=== PATIENT | female | born 1960 | race Hispanic/Latino ===

== ENCOUNTER 2017-08-11 06:21 | Day surgery (SDC) | payer BC ==
[2017-08-03 09:29] VITALS: BMI 29.7
[2017-08-11 07:15] LABS: BASO # 0.07 K/mm3 (0.0-2.0); BASO % 0.6 % (0.0-3.0); EOS # 0.6 (0.0-0.7); EOS % 5.1 % (1.5-5.0); GRAN # 6.09 (1.4-6.5); GRAN % 56.4 % (50.0-68.0); HEMATOCRIT 38.8 % (36.0-48.0); LYMPH # 3.2 (1.2-3.4); LYMPH % 29.2 % (22.0-35.0); MEAN CELL VOLUME 81.9 fl (80.0-105.0); MEAN CORPUSCULAR HEMOGLOBIN 28.1 pg (25.0-35.0); MEAN CORPUSCULAR HGB CONC 34.3 g/dl (31.0-37.0); MEAN PLATELET VOLUME 9.4 fl (7.0-11.0); MONO # 0.9 (0.1-0.6); MONO % 8.7 % (1.0-6.0); RED CELL DISTRIBUTION WIDTH 13.7 % (11.5-14.5); WHITE BLOOD COUNT 10.8 10^3/ul (4.5-11.0)
[2017-08-11 07:18] LABS: INR 0.99 (0.93-1.08)
[2017-08-11 07:30] LABS: BLOOD UREA NITROGEN 11 mg/dL (7-21); CALCIUM 9.2 mg/dL (8.4-10.5); CARBON DIOXIDE 29 mmol/L (21-33); CHLORIDE 104 mmol/L (98-107); CHOLESTEROL 147 mg/dL (130-200); GFR AFRICAN-AMERICAN > 60; GLUCOSE,RANDOM 159 mg/dL (70-110); SODIUM 143 mmol/L (132-148)
[2017-08-11] MEDS ORDERED: Lidocaine 2% Inj (20ml) ONE (07:30)
[2017-08-11] MEDS ORDERED: Midazolam 2 MG/2 ML VIAL ONE ×3 (07:31→08:16)
[2017-08-11] MEDS ORDERED: Iohexol 350mgl/ml 50 ML ONE (08:53)
[2017-08-11] MEDS ORDERED: Iodixanol 320 MG/ML 200 ML BOTTLE IV ONE (08:53)
[2017-08-11] MEDS ORDERED: Sodium Chloride 0.9% 1,000 ML IV SCH (09:15)
--- NOTE | 2017-08-11 13:40 | CARDCATH ---
PROCEDURE DATE: 08/11/2017 CARDIAC CATHETERIZATION AND PTCA HISTORY: The patient is a 57-year-old woman with previous PTCA and stent in the past as well as multiple cardiac risk factors, who presents with chest pain and an abnormal stress test. She suffers from diabetes mellitus, hypertension and hypercholesterolemia and is overweight. Because of her abnormal stress test and symptoms, cardiac catheterization was recommended. PROCEDURE: Left heart catheterization with coronary angiography and left ventriculogram followed by PTCA and stent of an LAD. The right femoral artery was cannulated with 6-Comoran sheath. There were no complications. The 6-Comoran sheath was exchanged for a 7-Comoran sheath during the intervention. The findings on catheterization revealed a left ventricle that contracted normally. Estimated ejection fraction of 60%. Her coronary anatomy revealed a right dominant circulation. The RCA revealed diffuse atherosclerosis with a patent stent in the midportion. The left main artery was unremarkable. The LAD revealed intimal irregularities with an 80% stenosis at the takeoff of the diagonal vessel which revealed an 80% in-stent restenosis The circumflex artery and obtuse marginal branches were free of significant disease. A 7-Comoran guiding catheter was placed in the ostium of the left main artery. An ATW wire was used to cross the lesion in the LAD. A second wire was placed into the diagonal vessel. A 2.5 balloon was utilized to predilate the in-stent restenosis of the diagonal vessel. A 2.5 balloon was utilized up to 12 to 14 atmospheres of pressure. A 2.0 followed by a 2.5, 12 mm balloon was utilized to dilate the 80% eccentric lesion of the LAD in the mid LAD which was 10 mm in length. A 3.5 x 12 mm drug-eluting stent was placed and deployed at 12 atmospheres of pressure. Repeat coronary angiography revealed an excellent result with resolution of the lesions, HELADIO III flow and no residual stenosis in both the LAD and diagonal vessels. Angio-Seal was used to close the femoral artery site. The patient tolerated the procedure well. CONCLUSION: In summary, the procedure was successful PTCA and stent of an 80% LAD stenosis and PTCA of the diagonal vessel. Cardiac catheterization revealed an in-stent restenosis of the diagonal vessel stent as well as a patent stent in the RCA with normal LV function. Given these findings, the patient will need to remain on aspirin indefinitely and Plavix for least a year and undergo a strict cardiac risk-reduction program. Geovani Peacock MD
--- NOTE | 2017-08-11 14:15 | CP.PCM.HP ---
History of Present Illness - History of Present Illness History of Present Illness: 57 yo female with PMH of CAD, with 2 previous stenting procedures, HLD, DM, HTN , Partial Right breast mastectomy on hormone therapy, presented with Chest pain and abnormal Stress test which was done at Dr. Kline office. Cardiac Cath was recommended by Dr. Peacock and the procedure was done today. 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 Denies alcohol or illicit drug use. Family Hx: father of [place] at 77, mother had multiple health problems, in her 60s Present on Admission - Present on Admission Any Indicators Present on Admission: No Review of Systems - Constitutional Constitutional: absent: Anorexia, Chills, Excessive Sweating, Fever, Headache - EENT Eyes: absent: Blurred Vision, Change in Vision Ears: absent: Decreased Hearing, Ear Pain, Tinnitus Nose/Mouth/Throat: absent: Nasal Congestion, Nasal Discharge, Sinus Pain, Sinus Pressure, Sore Throat - Cardiovascular Cardiovascular: absent: Chest Pain, Chest Pain with Activity, Dyspnea, Dyspnea on Exertion, Palpitations - Respiratory Respiratory: absent: Cough, Dyspnea, Dyspnea on Exertion, Chest Congestion - Gastrointestinal Gastrointestinal: absent: Abdominal Pain - Musculoskeletal Musculoskeletal: absent: Arthralgias, Numbness, Tingling - Integumentary Integumentary: absent: Rash - Neurological Neurological: absent: Abnormal Gait, Abnormal Hearing, Tingling, Weakness Past Patient History - Tetanus Immunizations Tetanus Immunization: Unknown - Past Social History Smoking Status: Current Some Days Smoker - CARDIAC Hx Pacemaker: No - PULMONARY Other/Comment: smoker - NEUROLOGICAL Hx Paralysis: No - ENDOCRINE/METABOLIC Hx Diabetes Mellitus Type 2: Yes - HEMATOLOGICAL/ONCOLOGICAL Hx Blood Transfusions: No Hx Blood Transfusion Reaction: No - MUSCULOSKELETAL/RHEUMATOLOGICAL Hx Musculoskeletal Disorders: No - PSYCHIATRIC Hx Emotional Abuse: No Hx Physical Abuse: No Hx Substance Use: No - SURGICAL HISTORY Hx Surgeries: Yes - ANESTHESIA Hx Anesthesia Reactions: No Hx Malignant Hyperthermia: No Meds Allergies/Adverse Reactions: Allergies Allergy/AdvReac Type Severity Reaction Status Date / Time No Known Allergies Allergy Verified 05/13/13 17:47 Physical Exam - Constitutional Appears: Non-toxic, No Acute Distress - Head Exam Head Exam: ATRAUMATIC, NORMAL INSPECTION, NORMOCEPHALIC - Eye Exam Eye Exam: EOMI, Normal appearance - ENT Exam ENT Exam: Mucous Membranes Moist, Normal Oropharynx - Neck Exam Neck exam: Positive for: Normal Inspection. Negative for: Lymphadenopathy - Respiratory Exam Respiratory Exam: Clear to Auscultation Bilateral, NORMAL BREATHING PATTERN - Cardiovascular Exam Cardiovascular Exam: REGULAR RHYTHM - GI/Abdominal Exam GI & Abdominal Exam: Normal Bowel Sounds. absent: Tenderness - Extremities Exam Extremities exam: Positive for: normal inspection, pedal pulses present Additional comments: pedal pulses 2+ bilaterally - Neurological Exam Neurological exam: Alert, Oriented x3 - Psychiatric Exam Psychiatric exam: Normal Mood Results - Vital Signs Recent Vital Signs: Last Vital Signs Temp 98.4 F 08/11/17 06:45 Pulse 67 08/11/17 10:05 Resp 18 08/11/17 06:45 BP 121/54 L 08/11/17 10:05 Pulse Ox 98 08/11/17 06:45 - Labs Result Diagrams: 08/11/17 06:45 08/11/17 06:45 Labs: Laboratory Results - last 24 hr 08/11/17 08/11/17 08/11/17 06:45 06:45 06:45 WBC 10.8 RBC 4.74 Hgb 13.3 Hct 38.8 MCV 81.9 MCH 28.1 MCHC 34.3 RDW 13.7 Plt Count 328 MPV 9.4 Gran % 56.4 Lymph % (Auto) 29.2 Clayton % (Auto) 8.7 H Eos % (Auto) 5.1 H Baso % (Auto) 0.6 Gran # 6.09 Lymph # 3.2 Clayton # 0.9 H Eos # 0.6 Baso # 0.07 PT 10.7 INR 0.99 APTT 28.0 Sodium 143 Potassium 4.0 Chloride 104 Carbon Dioxide 29 Anion Gap 14 BUN 11 Creatinine 0.6 Est GFR ( Amer) > 60 Est GFR (Non-Af Amer) > 60 Random Glucose 159 H Calcium 9.2 Triglycerides 211 H Cholesterol 147 LDL Cholesterol Direct 85 HDL Cholesterol 28 L Blood Type Blood Type Confirm Antibody Screen BBK History Checked 08/11/17 08/11/17 06:45 08:30 WBC RBC Hgb Hct MCV MCH MCHC RDW Plt Count MPV Gran % Lymph % (Auto) Clayton % (Auto) Eos % (Auto) Baso % (Auto) Gran # Lymph # Clayton # Eos # Baso # PT INR APTT Sodium Potassium Chloride Carbon Dioxide Anion Gap BUN Creatinine Est GFR ( Amer) Est GFR (Non-Af Amer) Random Glucose Calcium Triglycerides Cholesterol LDL Cholesterol Direct HDL Cholesterol Blood Type O POSITIVE Blood Type Confirm O POSITIVE Antibody Screen Negative BBK History Checked No verified bt Assessment & Plan - Assessment and Plan (Free Text) Assessment: 57 yo female with PMH of CAD, with 2 previous stenting procedures, HLD, CAD, DM , HTN, Partial Right breast mastectomy on hormone therapy status post cardiac cath and stenting. Plan: 1. 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 Peacock -LAD had 80% stenosis -EF 60% -on aspirin, metoprolol -started on plavix -NS @100 2. HTN -continue home meds 3. DM -hold oral hypoglcemics -ISS -Carb Consistent Diet 4. HLD -continue Atorvastatin 5. Prophylaxis -Pantoprazole -SCDs
[2017-08-11] MEDS: Insulin Lispro (humaLOG) LOW Coverage SC SCH ×2 (17:08→21:49)
[2017-08-12 01:51] VITALS: RESP 20
[2017-08-12 05:32] VITALS: PULSE 69
[2017-08-12] MEDS ORDERED: Pantoprazole 40 mg EC Tab PO SCH (06:00)
[2017-08-12 06:28] VITALS: TEMP 98.1; O2SAT 99
[2017-08-12 06:48] VITALS: BP 147/74
[2017-08-12 07:46] LABS: BLOOD UREA NITROGEN 12 mg/dL (7-21); CALCIUM 8.9 mg/dL (8.4-10.5); CARBON DIOXIDE 29 mmol/L (21-33); CHLORIDE 103 mmol/L (98-107); GFR AFRICAN-AMERICAN > 60; GLUCOSE,RANDOM 194 mg/dL (70-110); POTASSIUM 4.6 mmol/L (3.6-5.0); SODIUM 141 mmol/L (132-148)
[2017-08-12 07:50] LABS: BASO # 0.05 K/mm3 (0.0-2.0); BASO % 0.5 % (0.0-3.0); EOS # 0.5 (0.0-0.7); GRAN # 6.26 (1.4-6.5); GRAN % 58.8 % (50.0-68.0); HEMATOCRIT 37.8 % (36.0-48.0); LYMPH # 2.9 (1.2-3.4); LYMPH % 26.9 % (22.0-35.0); MEAN CELL VOLUME 83.1 fl (80.0-105.0); MEAN CORPUSCULAR HEMOGLOBIN 26.8 pg (25.0-35.0); MEAN CORPUSCULAR HGB CONC 32.3 g/dl (31.0-37.0); MEAN PLATELET VOLUME 9.3 fl (7.0-11.0); MONO # 0.9 (0.1-0.6); MONO % 8.8 % (1.0-6.0); RED CELL DISTRIBUTION WIDTH 13.9 % (11.5-14.5); WHITE BLOOD COUNT 10.6 10^3/ul (4.5-11.0)
[2017-08-12] MEDS: Insulin Lispro (humaLOG) LOW Coverage SC SCH (08:02)
--- NOTE | 2017-08-12 08:19 | CARD ---
APPROVED REPORT EKG Measurement Heart [id number] [id number] <Conclusion> Normal sinus rhythm Normal ECG
--- NOTE | 2017-08-12 13:51 | CP.PCM.DIS ---
Provider - Provider Attending physician: Dany Lynn MD Primary care physician: Dany Lynn MD Consults: Cardio: Ayush Time Spent in preparation of Discharge (in minutes): 45 Hospital Course - Lab Results Lab Results: Most Recent Lab Values WBC 10.6 10^3/ul (4.5-11.0) 08/12/17 06:00 RBC 4.55 10^6/uL (3.5-6.1) 08/12/17 06:00 Hgb 12.2 g/dL (12.0-16.0) 08/12/17 06:00 Hct 37.8 % (36.0-48.0) 08/12/17 06:00 MCV 83.1 fl (80.0-105.0) 08/12/17 06:00 MCH 26.8 pg (25.0-35.0) 08/12/17 06:00 MCHC 32.3 g/dl (31.0-37.0) 08/12/17 06:00 RDW 13.9 % (11.5-14.5) 08/12/17 06:00 Plt Count 302 10^3/uL (120.0-450.0) 08/12/17 06:00 MPV 9.3 fl (7.0-11.0) 08/12/17 06:00 Gran % 58.8 % (50.0-68.0) 08/12/17 06:00 Lymph % (Auto) 26.9 % (22.0-35.0) 08/12/17 06:00 Robertson % (Auto) 8.8 % (1.0-6.0) H 08/12/17 06:00 Eos % (Auto) 5.0 % (1.5-5.0) 08/12/17 06:00 Baso % (Auto) 0.5 % (0.0-3.0) 08/12/17 06:00 Gran # 6.26 (1.4-6.5) 08/12/17 06:00 Lymph # 2.9 (1.2-3.4) 08/12/17 06:00 Robertson # 0.9 (0.1-0.6) H 08/12/17 06:00 Eos # 0.5 (0.0-0.7) 08/12/17 06:00 Baso # 0.05 K/mm3 (0.0-2.0) 08/12/17 06:00 PT 10.7 Seconds (9.9-11.8) 08/11/17 06:45 INR 0.99 (0.93-1.08) 08/11/17 06:45 APTT 28.0 Seconds (23.7-30.8) 08/11/17 06:45 Sodium 141 mmol/L (132-148) 08/12/17 06:00 Potassium 4.6 mmol/L (3.6-5.0) 08/12/17 06:00 Chloride 103 mmol/L (98-107) 08/12/17 06:00 Carbon Dioxide 29 mmol/L (21-33) 08/12/17 06:00 Anion Gap 14 (10-20) 08/12/17 06:00 BUN 12 mg/dL (7-21) 08/12/17 06:00 Creatinine 0.7 mg/dL (0.5-1.4) 08/12/17 06:00 Est GFR ( Amer) > 60 08/12/17 06:00 Est GFR (Non-Af Amer) > 60 08/12/17 06:00 POC Glucose (mg/dL) 189 mg/dL (65-110) H 08/12/17 07:29 Random Glucose 194 mg/dL (70-110) H 08/12/17 06:00 Calcium 8.9 mg/dL (8.4-10.5) 08/12/17 06:00 Triglycerides 211 mg/dL (35-160) H 08/11/17 06:45 Cholesterol 147 mg/dL (130-200) 08/11/17 06:45 LDL Cholesterol Direct 85 mg/dL (0-129) 08/11/17 06:45 HDL Cholesterol 28 mg/dL (29-60) L 08/11/17 06:45 Blood Type O POSITIVE 08/11/17 06:45 Blood Type Confirm O POSITIVE 08/11/17 08:30 Antibody Screen Negative 08/11/17 06:45 BBK History Checked No verified bt 08/11/17 06:45 - Hospital Course Hospital Course: 57 yo female with PMH of CAD, with 2 previous stenting procedures, HLD, DM, HTN , Partial Right breast mastectomy on hormone therapy, presented with Chest pain and abnormal Stress test which was done at Dr. Kline office. Cardiac Cath was recommended by Dr. Peacock and the procedure was done on 08/12/17. Cardiac catherization PTCA was successful an dstent of an 80% stenosis and PTCA of the diagnoal vessel. Pt needs to remain on ASA and plavix. Today, pt was deemed stable per cardiology and was discharged. Discharge Exam - Head Exam Head Exam: ATRAUMATIC, NORMAL INSPECTION, NORMOCEPHALIC Discharge Plan - Follow Up Plan Condition: GOOD Disposition: HOME/ ROUTINE Instructions: Clopidogrel (By mouth), Coronary Artery Disease (DC), Chest Pain (DC), Left Heart Catheterization (DC), How to Stop Smoking (DC), Cigarette Smoking and Your Health (GEN), Angiography (DC), Coronary Intravascular Stent Placement (DC) Additional Instructions: Discharge home as per Dr. Peacock. Continue Plavix 75 mg by mouth daily. Continue same home medication prior to hospitalization. Follow up with Dr. Lynn in 1 week. Follow up with Dr. Peacock in 2 weeks. Return to nearest ER if symptoms worsen. See attached instructions. Referrals: Dany Lynn MD [Primary Care Provider] -
--- NOTE | 2017-08-12 15:53 | PN ---
DATE: 08/12/2017 SUBJECTIVE: The patient is asymptomatic post PTCA and stent. PHYSICAL EXAMINATION: VITAL SIGNS: Blood pressure 147/74 with heart rate in the 60s. NECK: Negative JVD. LUNGS: Without rales. HEART: Reveals S1, S2. EXTREMITIES: Without edema. Right groin site is stable. LABORATORY DATA: EKG shows no changes. IMPRESSION: 1. Stable post PTCA and stent of an left anterior descending with a drug-eluting stent. 2. Hypercholesterolemia. 3. Diabetes mellitus. 4. History of hypertension. PLAN: Given these findings, the patient is stable for discharge. I have discussed with the patient about the need to take Plavix for at least a year and undergo a strict cardiac risk reduction program. Geovani Peacock MD
--- NOTE | 2017-08-14 10:35 | CARD ---
APPROVED REPORT EKG Measurement Heart [id number] [id number] <Conclusion> Normal sinus rhythm Normal ECG No change
== END 2017-08-12 09:37 | disposition home or self-care (01) ==
LOC: CATH 06:21 → 2RSO 09:20 → CATH 08-12 09:37
PROVIDERS: ATTEND Internal Medicine
DX: I25.10 Atherosclerotic heart disease of native coronary artery without angina pectoris (principal); T82.855A Stenosis of coronary artery stent, initial encounter; I10 Essential (primary) hypertension; E11.8 Type 2 diabetes mellitus with unspecified complications; E78.5 Hyperlipidemia, unspecified; E78.00 Pure hypercholesterolemia, unspecified; E66.3 Overweight; Z68.29 Body mass index [BMI] 29.0-29.9, adult; Z79.4 Long term (current) use of insulin; Y83.8 Other surgical procedures as the cause of abnormal reaction of the patient, or of later complication, without mention of misadventure at the time of the procedure
CPT/HCPCS: 36415 ×2; 80048 ×2; 80061; 82948 ×2; 85025 ×2; 85610; 85730; 86850; 86900; 92920; 93005; 93458; 99152; 99153; C1725 ×2; C1769 ×2; C1874; C1887; C1894; C2629; C9600; J0360; J0583; J1644; J2250; J3010; J7030; J7040; J7120; Q9967

== ENCOUNTER 2018-08-11 22:08 | Inpatient (IN) | payer BC ==
[2018-08-11] MEDS ORDERED: Nitroglycerin 50mg in D5W 50 MG/250 ML BOTTLE IV ONE ×2 (22:19→22:44)
[2018-08-11] MEDS ORDERED: Nitroglycerin 50mg in D5W 50 MG/250 ML BOTTLE IV PRN (22:19)
[2018-08-11] MEDS ORDERED: Eptifibatide 20 mg/10mL Inj IVP ONE (22:20)
[2018-08-11] MEDS ORDERED: Morphine 4 mg/ml ISec IVP STA (22:23)
--- NOTE | 2018-08-11 22:23 | ED PDOC ---
Arrival/HPI - General Chief Complaint: Chest Pain Time Seen by Provider: 08/11/18 22:15 Historian: Patient - Critical Care Critical Care Minutes: Other (35 minutes) - History of Present Illness Narrative History of Present Illness (Text): 08/11/18 22:12 58 year old female, whose past medical history includes CAD s/p stents, hypertension, and diabetes, presents to the emergency department complaining of left-sided chest pain for the past hour. Patient describes the pain as a pressure sensation. 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 She reports she had a stress test done last Monday. Patient denies any fever, chills, shortness of breath, abdominal pain, nausea, vomiting, diarrhea, back pain, neck pain, dizziness, headache, or any other complaints. PMD: Dr. Lynn Supervisor Audit Clerks: Dr. Peacock Time/Duration: 1 hour Symptom Onset: Sudden Symptom Course: Unchanged Quality: Pressure Context: Home Past Medical History - Provider Review Nursing Documentation Reviewed: Yes - Tetanus Immunization Tetanus Immunization: Unknown - Cardiac Hx Hypertension: Yes - Pulmonary Other/Comment: smoker - Neurological Hx Paralysis: No - HEENT Hx HEENT Disorder: No - Renal Hx Renal Disorder: No - Endocrine/Metabolic Hx Diabetes Mellitus Type 2: Yes - Hematological/Oncological Hx Blood Transfusions: No Hx Blood Transfusion Reaction: No - Musculoskeletal/Rheumatological Hx Musculoskeletal Disorders: No - Psychiatric Hx Emotional Abuse: No Hx Physical Abuse: No Hx Substance Use: No - Surgical History Hx Cardiac Catheterization: Yes (stents x6) - Anesthesia Hx Anesthesia Reactions: No Hx Malignant Hyperthermia: No - Suicidal Assessment Feels Threatened In Home Enviroment: No Family/Social History - Physician Review Nursing Documentation Reviewed: Yes Family/Social History: No Known Family HX Smoking Status: Current Some Days Smoker Hx Alcohol Use: No Hx Substance Use: No Hx Substance Use Treatment: No Allergies/Home Meds Allergies/Adverse Reactions: Allergies No Known Allergies Allergy (Verified 05/13/13 17:47) Home Medications: Home Meds Medication Instructions Recorded Confirmed Metoprolol Succinate 50 mg PO BID 05/13/13 08/11/18 ALPRAZolam [Xanax] 0.25 mg PO DAILY PRN 03/18/16 08/11/18 Ergocalciferol (Vitamin D2) 50,000 unit PO TUE 07/31/17 08/11/18 [Vitamin D2] Insulin Degludec [Tresiba 60 unit SQ QPM 07/31/17 08/11/18 Flextouch U-100] Insulin Lispro [humALOG] 26 units SQ ACTID 07/31/17 08/11/18 Irbesartan [Avapro] 300 mg PO DAILY 07/31/17 08/11/18 Aspirin [Ecotrin] 81 mg PO DAILY 08/03/17 08/11/18 Clopidogrel [Plavix] 75 mg PO DAILY 08/03/17 08/11/18 Anastrozole [Arimidex] 1 mg PO DAILY 08/03/18 08/11/18 Pravastatin Sodium [Pravachol] 20 mg PO HS 08/11/18 08/11/18 Review of Systems - Physician Review All systems were reviewed & negative as marked: Yes - Review of Systems Constitutional: absent: Fevers, Other (Chills) Respiratory: absent: SOB Cardiovascular: Chest Pain Gastrointestinal: absent: Abdominal Pain, Diarrhea, Nausea Musculoskeletal: absent: Back Pain, Neck Pain Neurological: absent: Headache, Dizziness Physical Exam - Physical Exam Narrative Physical Exam (Text): 08/11/18 22:31 Gen: VS reviewed, alert, well developed, well nourished, nontoxic, mild to moderate distress. ENT: normal pharynx. Eye: EOMI, PERRL. Neck: no JVD, supple, no adenopathy. CV: regular rate, regular rhythm, no rubs, no murmur, no gallops, S1, S2, pulses equal and strong. Pulm: no distress, clear to auscultation, no wheeze, no rhonchi, breath sounds equal, no rales. Abd: soft, nontender, no guarding, no rebound, no rigidity, normal bowel sounds. Ext: no edema. Skin: good color, no rash, no cyanosis. Psych: responds appropriately to questions, normal affect. Neuro: oriented x 3, CN2-12 intact grossly, motor intact, sensation intact. Vital Signs Reviewed: Yes Temperature: Afebrile Blood Pressure: Hypertensive Pulse: Regular Respiratory Rate: Normal Medical Decision Making ED Course and Treatment: 08/11/18 22:12 Impression: 58 year old female presents complaining of left-sided chest pain that began one hour prior to arrival. Plan: -- EKG -- Labs -- CXR -- Brilinta, Heparin, Morphine, Nitroglycerin -- O2 Nasal Cannula -- Reassess and disposition Prior Visits: Notes and results from previous visits were reviewed. Progress Notes: 08/11/18 22:15 Code Heart called 08/11/18 22:[address] Lang interventionalist radiation oncologist. Request consult code management of STEMI and would like patient to get a dose of Heparin 5000 units and Brilinta. 08/11/18 22:[address] Rodriguez who is aware and agree with the plan. Will see patient for consultation/admission 08/11/18 22:37 patient with hx cad presents with acute left sided chest pressure, ekg consistent with acute st elevations, patient admitted to hospitalist service. - Critical Care Critical Care Minutes: Other (35 minutes) - EKG Interpretation EKG Interpretation (Text): 08/11/18 22:32 2213: sinus rhythm at 85 bpm, frequent pvc's, st elevations in leads I/AVL with reciprocal changes in lateral leads Interpreted by ED Physician: Yes Type: 12 lead EKG - Scribe Statement The provider has reviewed the documentation as recorded by the Scribe James Sotomayor Provider Scribe Attestation: All medical record entries made by the Scribe were at my direction and personally dictated by me. I have reviewed the chart and agree that the record accurately reflects my personal performance of the history, physical exam, medical decision making, and the department course for this patient. I have also personally directed, reviewed, and agree with the discharge instructions and disposition. Disposition/Present on Arrival - Present on Arrival Any Indicators Present on Arrival: No History of DVT/PE: No History of Uncontrolled Diabetes: No Urinary Catheter: No History of Decub. Ulcer: No History Surgical Site Infection Following: None - Disposition Have Diagnosis and Disposition been Completed?: Yes Diagnosis: Acute coronary syndrome Disposition: HOSPITALIZED Disposition Time: 10:15 Patient Plan: ICU Patient Problems: Current Active Problems Problem Status Onset Acute coronary syndrome Acute Condition: GUARDED
[2018-08-11] MEDS ORDERED: Morphine 4 mg/ml ISec IVP ONE (22:30)
[2018-08-11 22:32] LABS: BASO # 0.06 K/mm3 (0.0-2.0); BASO % 0.4 % (0.0-3.0); EOS # 0.4 (0.0-0.7); EOS % 2.4 % (1.5-5.0); GRAN # 7.39 (1.4-6.5); GRAN % 49.8 % (50.0-68.0); HEMOGLOBIN 12.5 g/dL (12.0-16.0); INR 1.01; LYMPH # 5.5 (1.2-3.4); LYMPH % 37.1 % (22.0-35.0); MEAN CELL VOLUME 80.9 fl (80.0-105.0); MEAN CORPUSCULAR HEMOGLOBIN 26.8 pg (25.0-35.0); MEAN CORPUSCULAR HGB CONC 33.1 g/dl (31.0-37.0); MEAN PLATELET VOLUME 9.2 fl (7.0-11.0); MONO # 1.5 (0.1-0.6); MONO % 10.3 % (1.0-6.0); PROTHROMBIN TIME 11.5 SECONDS (9.4-12.5); RBC 4.67 10^6/uL (3.5-6.1); RED CELL DISTRIBUTION WIDTH 13.7 % (11.5-14.5); WHITE BLOOD COUNT 14.8 10^3/ul (4.5-11.0)
[2018-08-11 22:35] LABS: ALB/GLOB RATIO 1.3 (1.1-1.8); ALBUMIN 4.6 g/dL (3.0-4.8); ALT/SGPT 22 U/L (7-56); AST/SGOT 27 U/L (14-36); BLOOD UREA NITROGEN 13 mg/dL (7-21); CALCIUM 9.7 mg/dL (8.4-10.5); GFR NON-AFRICAN AMERICAN > 60
[2018-08-11] MEDS ORDERED: Phenylephrine 10 mg/ml Inj ONE (22:40)
[2018-08-11] MEDS ORDERED: Midazolam 2 MG/2 ML VIAL ONE ×3 (22:42→23:31)
[2018-08-11] MEDS ORDERED: Iodixanol 320 MG/ML 200 ML BOTTLE IV ONE (22:44)
[2018-08-11] MEDS ORDERED: Iohexol 350mgl/ml 50 ML ONE (22:44)
[2018-08-11] MEDS ORDERED: Iodixanol 320 MG/ML 100 ML BOTTLE IV ONE (22:44)
[2018-08-11] MEDS ORDERED: Heparin 2,000 ML IV ONE (22:45)
[2018-08-11 22:59] LABS: TROPONIN I 0.02 ng/mL
[2018-08-11] MEDS ORDERED: Lidocaine 2% PF (10 ml) Amp ONE (23:08)
[2018-08-11] MEDS ORDERED: Sodium Chloride 0.9% 1,000 ML IV SCH (23:30)
--- NOTE | 2018-08-12 01:37 | CP.PCM.HP ---
<Rashawn Wilcox - Last Filed: 08/12/18 01:32> History of Present Illness - History of Present Illness History of Present Illness: Mike Jeri PGY2 - IM Resident - H&P for Hospitalist Team CC: STEMI HPI: 57 year old female with past medical history significant for CAD s/p stenting x 11, HLD, DM2, HTN, Breast CA s/p hormonal therapy who presented to [facility] ED with complaints of chest discomfort. Patient was evaluated and found to have ST segment elevations in lateral leads with recipriocal changes in II, III, and avF. Code HEART was called and patient was taken to [facility] with Dr. Gomez where he preformed PTCA to thrombosed previous stent in Diagnol 1. No stents were placed and EF was found to be 60%. Prior to arrival patient reports being at home painting overhead when she began to experience chest tightness, shortness of breath and numbness that was unrelenting. Patient indicates pain was as if someone was sitting on her chest. Rating painas 10/10 on admission, s/p cath pain rated as 3/10. Of note patient had recent stress test 2 weeks prior to admission for which she is unsure of results. Prior to that she had her most recent heart cath with stent placement in July 2017. Patient was transferred to ICU for post cath monitoring. Patient denies nausea, vomiting, fever, chills, abdominal discomfort, urinary symptoms, weakness, numbness. PMH: CAD s/p stenting x 11, HLD, DM2, HTN, Breast CA s/p hormonal therapy PSH: Parital right breast mastectomy, Right rotator cuff surgery, right partial mastectomy FMH: Father: @ 77 due to [place], Mother: @ 64 w/ HTN, CAD SOCHx: Tobacco: 30+pack year hx, ETOH: Denies, ID: Denies ALL: NKDA MEDS: MAR Reviewed PMD: Dr. Lynn Litharge Supervisor: Dr. Peacock Present on Admission - Present on Admission Any Indicators Present on Admission: No Review of Systems - Review of Systems All systems: reviewed and no additional remarkable complaints except (as mentioned in HPI) Past Patient History - Tetanus Immunizations Tetanus Immunization: Unknown - Past Social History Smoking Status: Current Some Days Smoker - CARDIAC Hx Hypertension: Yes - PULMONARY Other/Comment: smoker - NEUROLOGICAL Hx Paralysis: No - HEENT Hx HEENT Problems: No - RENAL Hx Chronic Kidney Disease: No - ENDOCRINE/METABOLIC Hx Diabetes Mellitus Type 2: Yes - HEMATOLOGICAL/ONCOLOGICAL Hx Blood Transfusions: No Hx Blood Transfusion Reaction: No - MUSCULOSKELETAL/RHEUMATOLOGICAL Hx Musculoskeletal Disorders: No - PSYCHIATRIC Hx Emotional Abuse: No Hx Physical Abuse: No Hx Substance Use: No - SURGICAL HISTORY Hx Cardiac Catheterization: Yes (stents x6) - ANESTHESIA Hx Anesthesia Reactions: No Hx Malignant Hyperthermia: No Meds Allergies/Adverse Reactions: Allergies Allergy/AdvReac Type Severity Reaction Status Date / Time No Known Allergies Allergy Verified 05/13/13 17:47 Physical Exam - Constitutional Appears: No Acute Distress - Head Exam Head Exam: ATRAUMATIC, NORMAL INSPECTION, NORMOCEPHALIC - Eye Exam Eye Exam: EOMI, PERRL - ENT Exam ENT Exam: Mucous Membranes Moist - Respiratory Exam Respiratory Exam: Clear to Auscultation Bilateral, NORMAL BREATHING PATTERN. absent: Rales, Rhonchi, Wheezes - Cardiovascular Exam Cardiovascular Exam: REGULAR RHYTHM, +S1, +S2 - GI/Abdominal Exam GI & Abdominal Exam: Normal Bowel Sounds, Soft. absent: Guarding, Hernia, Tenderness - Extremities Exam Extremities exam: Positive for: full ROM, pedal pulses present. Negative for: calf tenderness, pedal edema, tenderness - Neurological Exam Neurological exam: Alert, CN II-XII Intact, Oriented x3 Additional comments: motor and sensory grossly intact - Psychiatric Exam Psychiatric exam: Normal Affect, Normal Mood - Skin Skin Exam: Dry, Intact Results - Vital Signs Recent Vital Signs: Last Vital Signs Temp 98.4 F 08/12/18 00:00 Pulse 88 08/12/18 01:20 Resp 20 08/12/18 01:20 BP 160/82 H 08/12/18 01:18 Pulse Ox 99 08/12/18 01:20 - Labs Result Diagrams: 08/11/18 22:15 08/11/18 22:15 Labs: Laboratory Results - last 24 hr 08/11/18 08/11/18 08/11/18 22:15 22:15 22:15 WBC 14.8 H D RBC 4.67 Hgb 12.5 Hct 37.8 MCV 80.9 MCH 26.8 MCHC 33.1 RDW 13.7 Plt Count 367 MPV 9.2 Gran % 49.8 L Lymph % (Auto) 37.1 H Rice % (Auto) 10.3 H Eos % (Auto) 2.4 Baso % (Auto) 0.4 Gran # 7.39 H Lymph # (Auto) 5.5 H Rice # (Auto) 1.5 H Eos # (Auto) 0.4 Baso # (Auto) 0.06 PT 11.5 INR 1.01 Sodium 140 Potassium 3.3 L Chloride 101 Carbon Dioxide 28 Anion Gap 14 BUN 13 Creatinine 0.8 Est GFR ( Amer) > 60 Est GFR (Non-Af Amer) > 60 Random Glucose 150 H Calcium 9.7 Total Bilirubin 0.2 AST 27 ALT 22 Alkaline Phosphatase 119 Lactate Dehydrogenase 403 Total Creatine Kinase 78 Troponin I 0.02 Total Protein 8.1 Albumin 4.6 Globulin 3.5 Albumin/Globulin Ratio 1.3 Assessment & Plan - Assessment and Plan (Free Text) Assessment: 57 year old female with past medical history significant for CAD s/p stenting x 11, HLD, DM2, HTN, Breast CA s/p hormonal therapy who presented for chest discomfort. Code heart was initated and patient went to [facility] for emergent intervention. Patient is transferred to ICU s/p intervetion. Plan: STEMI - CODE HEART called upon admission to ED for ST elevation in lateral leads - Patient loaded with ASA, Heparin and taken to [facility] with brick yard hand Dr. Lundy - Patient was found to have stent thrombosis of diagonal 1 requiring PTCA - Previous cardiological work up done with Dr. Peacock, will consult Dr. Peacock - Patient to likely need further intervention in future per Dr. Lundy - PRU value noted to be 267 indicating low plavix function - Dr. Lundy requesting Brillinta 90mg in AM, asa 81mg - Continue to monitor vital signs Hx of HTN - BP trended and appreciated - Continue home medications Hx of DM2 - Holding oral hypoglycemics from home - ISS-low - ACCHS - Heart healthy diet, carb consistent Hx HLD - Lipitor 40mg QHS GI/DVT ppx - IV protonix - SCDs Patient seen, case and plan discussed with attending - Date & Time Date: 08/12/18 Time: 01:35 <Judith Rodriguez - Last Filed: 08/12/18 04:01> Results - Vital Signs Recent Vital Signs: Last Vital Signs Temp 98.4 F 08/12/18 00:00 Pulse 82 08/12/18 02:30 Resp 16 08/12/18 02:30 BP 112/58 L 08/12/18 02:30 Pulse Ox 99 08/12/18 01:20 - Labs Result Diagrams: 08/11/18 22:15 08/11/18 22:15 Labs: Laboratory Results - last 24 hr 08/11/18 08/11/18 08/11/18 22:15 22:15 22:15 WBC 14.8 H D RBC 4.67 Hgb 12.5 Hct 37.8 MCV 80.9 MCH 26.8 MCHC 33.1 RDW 13.7 Plt Count 367 MPV 9.2 Gran % 49.8 L Lymph % (Auto) 37.1 H Rice % (Auto) 10.3 H Eos % (Auto) 2.4 Baso % (Auto) 0.4 Gran # 7.39 H Lymph # (Auto) 5.5 H Rice # (Auto) 1.5 H Eos # (Auto) 0.4 Baso # (Auto) 0.06 PT 11.5 INR 1.01 Sodium 140 Potassium 3.3 L Chloride 101 Carbon Dioxide 28 Anion Gap 14 BUN 13 Creatinine 0.8 Est GFR ( Amer) > 60 Est GFR (Non-Af Amer) > 60 Random Glucose 150 H Calcium 9.7 Total Bilirubin 0.2 AST 27 ALT 22 Alkaline Phosphatase 119 Lactate Dehydrogenase 403 Total Creatine Kinase 78 Troponin I 0.02 Total Protein 8.1 Albumin 4.6 Globulin 3.5 Albumin/Globulin Ratio 1.3 Attending/Attestation - Attestation I have personally seen and examined this patient.: Yes I have fully participated in the care of the patient.: Yes I have reviewed all pertinent clinical information: Yes Notes (Text): 08/12/18 04:00 Agree with history, physical examination, assessment and plan.
[2018-08-12] MEDS ORDERED: Morphine 2 mg/ml ISec IVP STA (06:38)
[2018-08-12 08:13] VITALS: BMI 31.1
[2018-08-12 08:30] LABS: HEMOGLOBIN 10.5 g/dL (12.0-16.0); MEAN CELL VOLUME 80.1 fl (80.0-105.0); MEAN CORPUSCULAR HEMOGLOBIN 25.8 pg (25.0-35.0); MEAN CORPUSCULAR HGB CONC 32.2 g/dl (31.0-37.0); RBC 4.07 10^6/uL (3.5-6.1); RED CELL DISTRIBUTION WIDTH 13.6 % (11.5-14.5)
[2018-08-12 08:43] LABS: BLOOD UREA NITROGEN 8 mg/dL (7-21); CALCIUM 8.4 mg/dL (8.4-10.5); GFR NON-AFRICAN AMERICAN > 60
[2018-08-12 09:14] LABS: TROPONIN I 6.94 ng/mL
[2018-08-12] MEDS: Insulin Lispro (humaLOG) LOW Coverage SC SCH ×4 (09:49→22:25)
[2018-08-12] MEDS: Metoprolol Succinate 50 mg XL Tab PO SCH ×2 (10:04→17:23)
--- NOTE | 2018-08-12 10:17 | RAD ---
Date of service: 08/11/2018 HISTORY: Chest pain COMPARISON: 05/13/2013. FINDINGS: LUNGS: No active pulmonary disease. PLEURA: No significant pleural effusion identified, no pneumothorax apparent. CARDIOVASCULAR: No radiographic findings to suggest acute or significant cardiovascular disease. OSSEOUS STRUCTURES: No significant abnormalities. VISUALIZED UPPER ABDOMEN: Normal. OTHER FINDINGS: None. IMPRESSION: No active disease. No significant interval change compared to the prior examination(s).
--- NOTE | 2018-08-12 11:48 | PN ---
DATE: 08/12/2018 CABLE FORMER NOTE SUBJECTIVE: The patient is resting with O2 via nasal cannula. Continues to have nitroglycerin IV drip. Has no complaints of active chest pain at this time. No fever, chills, nausea or vomiting. No complaints of increased shortness of breath, cough or congestion. PHYSICAL EXAMINATION: VITAL SIGNS: Note that her temperature is 97.9, her pulse is 71, respirations of 17 and BP is 127/72. SKIN: Warm and dry. HEENT: Head atraumatic, normocephalic. Eyes reactive to light. Ears, nose and throat seemed to be within normal limits. NECK: Supple. No JVD. No thyroid enlargement. No lymph nodes. HEART: Has regular rate and rhythm. Normal S1, S2. LUNGS: Reveal good breath sounds bilaterally. ABDOMEN: Soft. Decreased bowel sounds. GENITALIA: Deferred. RECTAL: Deferred. MUSCULOSKELETAL: No joint deformities. EXTREMITIES: Reveal trace lower extremity edema. NEUROLOGICAL: She seemed to be grossly intact. DATA: As far as her laboratories are concerned, her white count is 13, hemoglobin is 10.5 and hematocrit is 32.6 with platelets of 274,000. Sodium is 140, potassium 3.3, chloride 101, CO2 of 28 with a BUN of 13, creatinine of 0.8. Blood glucose is 150. IMPRESSION: As far as my impression, this patient presented with myocardial infarction. Code heart was called. The patient has history of coronary artery disease with six stents placed in for prior cardiac problems. The patient has a history of hypertension and diabetes, breast carcinoma and anemia as well as hyperlipidemia. PLAN: As far as our plan, we will continue with O2 via nasal cannula, continue with Brilinta, Ecotrin, Lipitor, nitroglycerin IV, IV fluids, metoprolol, Tylenol p.r.n. We will also continue to follow closely and treat aggressively along with the other consultants and the primary care doctor. Lupillo Allen MD
[2018-08-12] MEDS ORDERED: Magnesium Sulfate 2 GM in Sodium Chloride 0.9% 100 ML IVPB ONE (12:36)
--- NOTE | 2018-08-13 00:15 | CON ---
DATE: 08/12/2018 CARDIOLOGY CONSULT REASON FOR CONSULTATION: Chest pain and acute SC. HISTORY OF PRESENT ILLNESS: The patient is a 58-year-old female, who has a history of coronary artery disease, status post coronary stenting in the past, most recent stent was about a day ago according to the patient. The patient has a history of hypertension, diabetes mellitus. She presented because of chest pain. She was at home when she experienced chest pain; however, she went took a shower and her son brought her to the emergency room. The patient was found to have lateral ST elevation. Code Heart was activated. The patient was taken to the cardiac woven label designer and underwent coronary intervention on a diagonal branch. The images and the report of the procedure are not available yet on the [facility] database. The patient is currently in ICU, clinically stable, chest pain free. No reported ventricular arrhythmia or hypertension. Femoral sheath was removed and no reported groin bleeding. MEDICATIONS: Brilinta 90 mg twice a day, aspirin 81 mg once a day, Lipitor 40 mg once a day, magnesium sulfate 2 g infusion, infusion at 20 mcg per minute, Toprol-XL 50 mg twice a day. REVIEW OF SYSTEMS: No nausea or vomiting. No groin bleeding. No hematemesis or melena. PHYSICAL EXAMINATION: GENERAL: The patient is a middle-aged female, who does not appear to be in acute distress. VITAL SIGNS: Blood pressure 139/66, heart rate 78, temperature 98.2, respirations 23. HEENT: Normocephalic. NECK: No JVD. CHEST: Clear. HEART: S1 and S2 regular. ABDOMEN: Soft. EXTREMITIES: No hematoma and no pedal edema. LABORATORY DATA: Today's hemoglobin and hematocrit 10.5 and 32.6, white count 13, platelet count 274,000. SMA-7: Sodium 136, potassium 3.8, chloride 103, CO2 of 25, glucose 209, BUN 8, creatinine 0.5. Troponin first one was 0.02, second one was 6.94. PT and INR are within normal limit. Admitting EKG revealed sinus rhythm with [address] elevation. Today's EKG at around 11:00 a.m. revealed sinus rhythm with resolution of the previously noted lateral ST-segment elevation. The most recent coronary intervention was on 08/11/2017, exactly 1 year ago where the patient underwent PTCA and stent to 80% stenosis LAD and PTCA to a diagonal branch. ASSESSMENT: 1. Status post ST-elevation myocardial infarction with successful percutaneous coronary intervention to the diagonal branch. 2. Previous history of coronary artery disease with left anterior descending stenting of an 80% stenosis. 3. Hypertension and diabetes mellitus. 4. Hypomagnesemia. RECOMMENDATIONS: Continue Brilinta 90 mg twice a day, aspirin 81 mg once a day, Lipitor at 40 mg once a day. Continue current intravenous magnesium sulfate replacement. Continue Toprol at 50 mg twice a day. Venancio Elmore MD
[2018-08-13 07:15] VITALS: O2SAT 99
[2018-08-13 07:16] LABS: BASO # 0.04 K/mm3 (0.0-2.0); BASO % 0.3 % (0.0-3.0); EOS # 0.2 (0.0-0.7); EOS % 1.9 % (1.5-5.0); GRAN # 7.21 (1.4-6.5); GRAN % 62.2 % (50.0-68.0); HEMOGLOBIN 11.9 g/dL (12.0-16.0); LYMPH # 2.9 (1.2-3.4); LYMPH % 25.2 % (22.0-35.0); MEAN CELL VOLUME 80.3 fl (80.0-105.0); MEAN CORPUSCULAR HGB CONC 32.4 g/dl (31.0-37.0); MEAN PLATELET VOLUME 9.2 fl (7.0-11.0); MONO # 1.2 (0.1-0.6); MONO % 10.4 % (1.0-6.0); RBC 4.57 10^6/uL (3.5-6.1); RED CELL DISTRIBUTION WIDTH 13.8 % (11.5-14.5); WHITE BLOOD COUNT 11.6 10^3/ul (4.5-11.0)
[2018-08-13 07:41] LABS: ALB/GLOB RATIO 1.2 (1.1-1.8); ALBUMIN 4.1 g/dL (3.0-4.8); ALT/SGPT 20 U/L (7-56); AST/SGOT 44 U/L (14-36); BLOOD UREA NITROGEN 7 mg/dL (7-21); CALCIUM 9.3 mg/dL (8.4-10.5); GFR NON-AFRICAN AMERICAN > 60
[2018-08-13] MEDS: Insulin Lispro (humaLOG) LOW Coverage SC SCH (07:43)
[2018-08-13] MEDS: Metoprolol Succinate 50 mg XL Tab PO SCH (09:23)
--- NOTE | 2018-08-13 09:23 | CARD ---
APPROVED REPORT Date of service: 08/12/2018 EKG Measurement Heart [id number] <Conclusion> Normal sinus rhythm RVCD STTW changes c/w ischemia. Less ST depressions c/w ECG 08/11/28
--- NOTE | 2018-08-13 09:25 | CARD ---
APPROVED REPORT Date of service: 08/12/2018 EKG Measurement Heart [id number] <Conclusion> Normal sinus rhythm Septal infarct, age undetermined Improved repolarizaion c/w earlier ECG
[2018-08-13 09:27] VITALS: BP 133/75
--- NOTE | 2018-08-13 09:46 | CP.CCUPN ---
<Robb Lo - Last Filed: 08/13/18 12:13> CCU Subjective - Physician Review Subjective (Free Text): Robb Lo, PGY-1, CCU Progress Note for Dr. Faria Patient seen and examined at chairside. Patient had no overnight events. Patient reports chronic cough for 3 weeks due to a cold but no shortness of breath. Patient denies, chest pain, heart palpitations, shortness of breath, nausea, vomiting, left arm pain, jaw pain, diaphoresis, headache, dizziness, fever, sore throat, constipation, diarrhea, dysuria, hematuria, numbness/tingling, weakness. Critical Care Time Spent (in minutes): 60 CCU Objective - Vital Signs / Intake & Output Vital Signs (Last 4 hours): Vital Signs Pulse Resp BP Pulse Ox 08/13/18 09:23 71 133/75 08/13/18 07:15 72 08/13/18 07:10 77 11 L 99 08/13/18 07:00 70 14 98 08/13/18 06:50 82 35 H 99 08/13/18 06:40 73 29 H 98 08/13/18 06:30 65 21 97 08/13/18 06:20 68 15 97 08/13/18 06:10 69 22 95 08/13/18 06:00 66 20 142/78 96 08/13/18 05:50 70 15 95 Intake and Output (Last 8hrs): Intake & Output 08/12/18 08/13/18 08/13/18 22:59 06:59 14:59 Intake Total 577 310 Output Total 1100 1600 Balance -523 -1290 Intake: IV 237 30 IVF 0 IVPB 100 0 Left Antecubital 0 Nitro Drip 72 18 Oral 340 280 Output: Urine 1100 1600 Urine, Voided 1100 1600 Other: # Bowel Movements 0 - Physical Exam Head: Positive for: Atraumatic, Normocephalic Pupils: Positive for: PERRL Extroacular Muscles: Positive for: EOMI Conjunctiva: Positive for: Normal Mouth: Positive for: Moist Mucous Membranes Pharnyx: Positive for: Normal Nose (External): Positive for: Atraumatic. Negative for: Abrasion, Contusion, Laceration Nose (Internal): Positive for: Normal Inspection, Moist Neck: Positive for: Normal Range of Motion Respiratory/Chest: Positive for: Clear to Auscultation, Good Air Exchange. Negative for: Respiratory Distress, Accessory Muscle Use Cardiovascular: Positive for: Regular Rate and Rhythm, Normal S1, S2, Peripheal Pulses Present. Negative for: Murmurs, Irregular Rhythm Abdomen: Negative for: Tenderness, Distention, Normal Bowel Sounds Upper Extremity: Positive for: Normal Inspection, Normal ROM, NORMAL PULSES, Capillary Refill < 2s. Negative for: Cyanosis, Edema Lower Extremity: Positive for: Normal Inspection, Normal ROM, Capillary Refill < 2 s. Negative for: Edema, CALF TENDERNESS, NORMAL PULSES Neurological: Positive for: GCS=15, CN II-XII Intact, Speech Normal, Motor Func Grossly Intact Skin: Positive for: Warm, Dry, Normal Color Psychiatric: Positive for: Alert, Oriented x 3, Normal Insight, Normal Concentration - Medications Active Medications: Active Medications Generic Name Dose Route Start Last Admin Trade Name Freq PRN Reason Stop Dose Admin Acetaminophen 650 mg 08/12/18 06:06 08/12/18 13:15 Tylenol 325mg Tab PO 650 mg Q6H PRN Administration Pain, moderate (4-7) Acetaminophen 650 mg 08/12/18 06:13 Tylenol 325mg Tab PO Q6H PRN Headache Aspirin 81 mg 08/12/18 10:00 08/13/18 09:22 Ecotrin PO 81 mg DAILY DUKE Administration Atorvastatin Calcium 40 mg 08/12/18 17:00 08/12/18 17:24 Lipitor PO 40 mg DIN DUKE Administration Insulin Human Lispro 0 units 08/12/18 07:30 08/13/18 07:43 Humalog Low SC 1 units ACHS DUKE Administration Protocol Metoprolol Succinate 50 mg 08/12/18 10:00 08/13/18 09:23 Toprol Xl PO 50 mg BID DUKE Administration Pantoprazole Sodium 40 mg 08/13/18 10:00 Protonix Ec Tab PO DAILY DUKE Prasugrel 10 mg 08/13/18 10:00 08/13/18 09:23 Effient PO 10 mg DAILY DUKE Administration - Patient Studies Lab Studies: Lab Studies 08/13/18 08/13/18 08/12/18 Range/Units 06:18 06:18 22:01 WBC 11.6 H (4.5-11.0) 10^3/ul RBC 4.57 (3.5-6.1) 10^6/uL Hgb 11.9 L (12.0-16.0) g/dL Hct 36.7 (36.0-48.0) % MCV 80.3 (80.0-105.0) fl MCH 26.0 (25.0-35.0) pg MCHC 32.4 (31.0-37.0) g/dl RDW 13.8 (11.5-14.5) % Plt Count 307 (120.0-450.0) 10^3/uL MPV 9.2 (7.0-11.0) fl Gran % 62.2 (50.0-68.0) % Lymph % (Auto) 25.2 (22.0-35.0) % Sutton % (Auto) 10.4 H (1.0-6.0) % Eos % (Auto) 1.9 (1.5-5.0) % Baso % (Auto) 0.3 (0.0-3.0) % Gran # 7.21 H (1.4-6.5) Lymph # (Auto) 2.9 (1.2-3.4) Sutton # (Auto) 1.2 H (0.1-0.6) Eos # (Auto) 0.2 (0.0-0.7) Baso # (Auto) 0.04 (0.0-2.0) K/mm3 Sodium 139 (132-148) mmol/L Potassium 4.2 (3.6-5.0) mmol/L Chloride 106 (98-107) mmol/L Carbon Dioxide 25 (21-33) mmol/L Anion Gap 12 (10-20) BUN 7 (7-21) mg/dL Creatinine 0.5 L (0.7-1.2) mg/dl Est GFR ( Amer) > 60 Est GFR (Non-Af Amer) > 60 POC Glucose (mg/dL) 178 H (65-110) mg/dL Random Glucose 166 H (70-110) mg/dL Calcium 9.3 (8.4-10.5) mg/dL Phosphorus 4.0 (2.5-4.5) mg/dL Magnesium 2.1 (1.7-2.2) mg/dL Total Bilirubin 0.5 (0.2-1.3) mg/dL AST 44 H D (14-36) U/L ALT 20 (7-56) U/L Alkaline Phosphatase 92 (38-126) U/L Total Protein 7.6 (5.8-8.3) g/dL Albumin 4.1 (3.0-4.8) g/dL Globulin 3.5 gm/dL Albumin/Globulin Ratio 1.2 (1.1-1.8) 08/12/18 08/12/18 Range/Units 16:06 11:52 WBC (4.5-11.0) 10^3/ul RBC (3.5-6.1) 10^6/uL Hgb (12.0-16.0) g/dL Hct (36.0-48.0) % MCV (80.0-105.0) fl MCH (25.0-35.0) pg MCHC (31.0-37.0) g/dl RDW (11.5-14.5) % Plt Count (120.0-450.0) 10^3/uL MPV (7.0-11.0) fl Gran % (50.0-68.0) % Lymph % (Auto) (22.0-35.0) % Sutton % (Auto) (1.0-6.0) % Eos % (Auto) (1.5-5.0) % Baso % (Auto) (0.0-3.0) % Gran # (1.4-6.5) Lymph # (Auto) (1.2-3.4) Sutton # (Auto) (0.1-0.6) Eos # (Auto) (0.0-0.7) Baso # (Auto) (0.0-2.0) K/mm3 Sodium (132-148) mmol/L Potassium (3.6-5.0) mmol/L Chloride (98-107) mmol/L Carbon Dioxide (21-33) mmol/L Anion Gap (10-20) BUN (7-21) mg/dL Creatinine (0.7-1.2) mg/dl Est GFR ( Amer) Est GFR (Non-Af Amer) POC Glucose (mg/dL) 236 H 219 H (65-110) mg/dL Random Glucose (70-110) mg/dL Calcium (8.4-10.5) mg/dL Phosphorus (2.5-4.5) mg/dL Magnesium (1.7-2.2) mg/dL Total Bilirubin (0.2-1.3) mg/dL AST (14-36) U/L ALT (7-56) U/L Alkaline Phosphatase (38-126) U/L Total Protein (5.8-8.3) g/dL Albumin (3.0-4.8) g/dL Globulin gm/dL Albumin/Globulin Ratio (1.1-1.8) Laboratory Results - last 24 hr 08/12/18 08/12/18 08/12/18 11:52 16:06 22:01 WBC RBC Hgb Hct MCV MCH MCHC RDW Plt Count MPV Gran % Lymph % (Auto) Sutton % (Auto) Eos % (Auto) Baso % (Auto) Gran # Lymph # (Auto) Sutton # (Auto) Eos # (Auto) Baso # (Auto) Sodium Potassium Chloride Carbon Dioxide Anion Gap BUN Creatinine Est GFR ( Amer) Est GFR (Non-Af Amer) POC Glucose (mg/dL) 219 H 236 H 178 H Random Glucose Calcium Phosphorus Magnesium Total Bilirubin AST ALT Alkaline Phosphatase Total Protein Albumin Globulin Albumin/Globulin Ratio 08/13/18 08/13/18 06:18 06:18 WBC 11.6 H RBC 4.57 Hgb 11.9 L Hct 36.7 MCV 80.3 MCH 26.0 MCHC 32.4 RDW 13.8 Plt Count 307 MPV 9.2 Gran % 62.2 Lymph % (Auto) 25.2 Sutton % (Auto) 10.4 H Eos % (Auto) 1.9 Baso % (Auto) 0.3 Gran # 7.21 H Lymph # (Auto) 2.9 Sutton # (Auto) 1.2 H Eos # (Auto) 0.2 Baso # (Auto) 0.04 Sodium 139 Potassium 4.2 Chloride 106 Carbon Dioxide 25 Anion Gap 12 BUN 7 Creatinine 0.5 L Est GFR ( Amer) > 60 Est GFR (Non-Af Amer) > 60 POC Glucose (mg/dL) Random Glucose 166 H Calcium 9.3 Phosphorus 4.0 Magnesium 2.1 Total Bilirubin 0.5 AST 44 H D ALT 20 Alkaline Phosphatase 92 Total Protein 7.6 Albumin 4.1 Globulin 3.5 Albumin/Globulin Ratio 1.2 Fingerstick Blood Sugar Results: 173 Review of Systems - Constitutional Constitutional: absent: Fever, Chills, Sweats - EENT Eyes: absent: Blurred Vision Ears: absent: Decreased Hearing Nose/Mouth/Throat: absent: Sore Throat - Cardiovascular Cardiovascular: absent: Chest Pain, Chest Pain at Rest, Diaphoresis, Dyspnea, Edema, Irregular Heart Rhythm, Pain Radiating to Arm/Neck/Jaw, Lightheadedness, Orthopnea, Palpitations, Paroxysmal Nocturnal Dyspnea, Pedal Edema - Respiratory Respiratory: Cough. absent: Dyspnea, Hemoptysis, Wheezing - Gastrointestinal Gastrointestinal: absent: Abdominal Pain, Constipation, Diarrhea, Nausea, Vomiting - Genitourinary Genitourinary: absent: Dysuria, Hematuria, Pyuria - Musculoskeletal Musculoskeletal: absent: Abnormal Gait, Arthralgias, Myalgias - Neurological Neurological: absent: Numbness, Tingling, Tremor, Weakness - Psychiatric Psychiatric: absent: Anxiety, Depression Critical Care Progress Note - Ventilator Checklist Head of Bed 30 Degrees: No PUD Prophalyxis: Yes DVT Prophylaxis: Yes - Extremities/Vascular Does the Patient have a Central Venous Catheter?: No Does the Patient need a Central Venous Catheter?: No Does the Patient have a Pimentel Catheter?: No Does the Patient need a Pimentel Catheter?: No - Prophylaxis GI Prophylaxis GI: PPI - Nutrition Nutrition: Nutrition Category Date Time Status Diabetic [Consistent Carbohydrate] [DIET] Diets 08/13/18 Breakfast Ordered Assessment/Plan - Assessment and Plan (Free Text) Assessment: 58 year old female with past medical history of CAD status post stent placement x6, hyperlipidemia, diabetes type II, hypertension, breast cancer status post ho rmonal therapy presents with chest pressure with sensation of person sitting on her chest, numbness, and shortness of breath. Plan: Neuro: -AAOx3, no FND, moving extremities past midline. -Monitor neuro status. -Reorient patient as necessary. Cardio: -RRR, normotensive, no signs of HD compromise -Patient -Maintain MAP>65. -EKG: ST elevation in I (0.5 mm), aVL (1 mm) seen on EKG at 6:00 on 08/12 unchanged from EKG at 11:00 PM on 08/11 -Patient had cardiac catherization procedure performed by Dr. Aparicio which showed stenosed previous stent in Diagonal 1. No stents were placed. Patient for further evaluation outpatient as per Dr. Peacock. -Last echocardiogram: EF: 60% -Patient will be started on effient 10 mg daily. -Continue toprol, aspirin, and lipitor. -Monitor for S/S, HD compromise. Pulm: -No signs of respiratory distress. CTA B/L -Patient is stating well on room air. -Maintain O2 saturation>95%. -O2 NC PRN -CXR: no active disease GI: -Diabetic diet with heart healthy diet -Protonix 40 mg daily. /Nephro: -BUN/Cr stable -Good urine output -Continue monitoring. -No current electrolyte abnormalities. Replete electrolytes as needed. -Maintain euvolemia. Endocrinology: -Random glucose: 166 -Low dose SSI. -Maintain euglycemia. Heme/Onc: -H/H stable at 11.9/36.7 -No signs of HD compromise. -Continue monitoring H/H ID: -Afebrile, mild leukocytosis at 11.6 down from 13 yesterday -Leukocytosis likely stress induced. -Monitor for signs and symptoms of infection. DVT prophylaxis: SCD GI prophylaxis: protonix 40 mg daily Patient plan discussed with Dr. Faria. - Date & Time Date: 08/13/18 Time: 09:54 <Ericka Faria - Last Filed: 08/13/18 18:03> CCU Objective - Vital Signs / Intake & Output Intake and Output (Last 8hrs): Intake & Output 08/13/18 08/13/18 08/13/18 06:59 14:59 22:59 Intake Total 310 460 Output Total 1600 1100 Balance -1290 -640 Intake: IV 30 IVF 0 IVPB 0 Left Antecubital 0 Nitro Drip 18 Oral 280 460 Output: Urine 1600 1100 Urine, Voided 1600 1100 Other: # Bowel Movements 0 - Patient Studies Lab Studies: Lab Studies 08/13/18 08/13/18 08/13/18 Range/Units 07:20 06:18 06:18 WBC 11.6 H (4.5-11.0) 10^3/ul RBC 4.57 (3.5-6.1) 10^6/uL Hgb 11.9 L (12.0-16.0) g/dL Hct 36.7 (36.0-48.0) % MCV 80.3 (80.0-105.0) fl MCH 26.0 (25.0-35.0) pg MCHC 32.4 (31.0-37.0) g/dl RDW 13.8 (11.5-14.5) % Plt Count 307 (120.0-450.0) 10^3/uL MPV 9.2 (7.0-11.0) fl Gran % 62.2 (50.0-68.0) % Lymph % (Auto) 25.2 (22.0-35.0) % Sutton % (Auto) 10.4 H (1.0-6.0) % Eos % (Auto) 1.9 (1.5-5.0) % Baso % (Auto) 0.3 (0.0-3.0) % Gran # 7.21 H (1.4-6.5) Lymph # (Auto) 2.9 (1.2-3.4) Sutton # (Auto) 1.2 H (0.1-0.6) Eos # (Auto) 0.2 (0.0-0.7) Baso # (Auto) 0.04 (0.0-2.0) K/mm3 Sodium 139 (132-148) mmol/L Potassium 4.2 (3.6-5.0) mmol/L Chloride 106 (98-107) mmol/L Carbon Dioxide 25 (21-33) mmol/L Anion Gap 12 (10-20) BUN 7 (7-21) mg/dL Creatinine 0.5 L (0.7-1.2) mg/dl Est GFR ( Amer) > 60 Est GFR (Non-Af Amer) > 60 POC Glucose (mg/dL) 173 H (65-110) mg/dL Random Glucose 166 H (70-110) mg/dL Calcium 9.3 (8.4-10.5) mg/dL Phosphorus 4.0 (2.5-4.5) mg/dL Magnesium 2.1 (1.7-2.2) mg/dL Total Bilirubin 0.5 (0.2-1.3) mg/dL AST 44 H D (14-36) U/L ALT 20 (7-56) U/L Alkaline Phosphatase 92 (38-126) U/L Total Protein 7.6 (5.8-8.3) g/dL Albumin 4.1 (3.0-4.8) g/dL Globulin 3.5 gm/dL Albumin/Globulin Ratio 1.2 (1.1-1.8) 08/12/18 Range/Units 22:01 WBC (4.5-11.0) 10^3/ul RBC (3.5-6.1) 10^6/uL Hgb (12.0-16.0) g/dL Hct (36.0-48.0) % MCV (80.0-105.0) fl MCH (25.0-35.0) pg MCHC (31.0-37.0) g/dl RDW (11.5-14.5) % Plt Count (120.0-450.0) 10^3/uL MPV (7.0-11.0) fl Gran % (50.0-68.0) % Lymph % (Auto) (22.0-35.0) % Sutton % (Auto) (1.0-6.0) % Eos % (Auto) (1.5-5.0) % Baso % (Auto) (0.0-3.0) % Gran # (1.4-6.5) Lymph # (Auto) (1.2-3.4) Sutton # (Auto) (0.1-0.6) Eos # (Auto) (0.0-0.7) Baso # (Auto) (0.0-2.0) K/mm3 Sodium (132-148) mmol/L Potassium (3.6-5.0) mmol/L Chloride (98-107) mmol/L Carbon Dioxide (21-33) mmol/L Anion Gap (10-20) BUN (7-21) mg/dL Creatinine (0.7-1.2) mg/dl Est GFR ( Amer) Est GFR (Non-Af Amer) POC Glucose (mg/dL) 178 H (65-110) mg/dL Random Glucose (70-110) mg/dL Calcium (8.4-10.5) mg/dL Phosphorus (2.5-4.5) mg/dL Magnesium (1.7-2.2) mg/dL Total Bilirubin (0.2-1.3) mg/dL AST (14-36) U/L ALT (7-56) U/L Alkaline Phosphatase (38-126) U/L Total Protein (5.8-8.3) g/dL Albumin (3.0-4.8) g/dL Globulin gm/dL Albumin/Globulin Ratio (1.1-1.8) Laboratory Results - last 24 hr 08/12/18 08/13/18 08/13/18 22:01 06:18 06:18 WBC 11.6 H RBC 4.57 Hgb 11.9 L Hct 36.7 MCV 80.3 MCH 26.0 MCHC 32.4 RDW 13.8 Plt Count 307 MPV 9.2 Gran % 62.2 Lymph % (Auto) 25.2 Sutton % (Auto) 10.4 H Eos % (Auto) 1.9 Baso % (Auto) 0.3 Gran # 7.21 H Lymph # (Auto) 2.9 Sutton # (Auto) 1.2 H Eos # (Auto) 0.2 Baso # (Auto) 0.04 Sodium 139 Potassium 4.2 Chloride 106 Carbon Dioxide 25 Anion Gap 12 BUN 7 Creatinine 0.5 L Est GFR ( Amer) > 60 Est GFR (Non-Af Amer) > 60 POC Glucose (mg/dL) 178 H Random Glucose 166 H Calcium 9.3 Phosphorus 4.0 Magnesium 2.1 Total Bilirubin 0.5 AST 44 H D ALT 20 Alkaline Phosphatase 92 Total Protein 7.6 Albumin 4.1 Globulin 3.5 Albumin/Globulin Ratio 1.2 08/13/18 07:20 WBC RBC Hgb Hct MCV MCH MCHC RDW Plt Count MPV Gran % Lymph % (Auto) Sutton % (Auto) Eos % (Auto) Baso % (Auto) Gran # Lymph # (Auto) Sutton # (Auto) Eos # (Auto) Baso # (Auto) Sodium Potassium Chloride Carbon Dioxide Anion Gap BUN Creatinine Est GFR ( Amer) Est GFR (Non-Af Amer) POC Glucose (mg/dL) 173 H Random Glucose Calcium Phosphorus Magnesium Total Bilirubin AST ALT Alkaline Phosphatase Total Protein Albumin Globulin Albumin/Globulin Ratio Critical Care Progress Note - Nutrition Nutrition: Nutrition Category Date Time Status Diabetic [Consistent Carbohydrate] [DIET] Diets 08/13/18 Breakfast Ordered Addendum Addendum: 10/01/18 18:03 ICU Attending Addendum: Patient seen and examined. Case reviewed on round with housestaff. Agree with resident note above with the following additions/exceptions: 58 year old female with past medical history of CAD status post stent placement x6, Dm HTN, breast cancer status post hormonal therapy presents with CP found to have prior stent in diag stenosed - s/p ballooned. Cardio on board, planning to d/c patient home today. Defer to cards for med rec and follow up care. currently asymptomatic and hemodynmically stable no longer needs ICU level care rest of care above Ericka Faria MD [employer]
[2018-08-13 09:47] VITALS: PULSE 74; RESP 41
[2018-08-13 09:55] VITALS: TEMP 98.4
[2018-08-13] MEDS ORDERED: Pantoprazole 40 mg EC Tab PO SCH (10:00)
--- NOTE | 2018-08-13 11:08 | PN ---
DATE: 08/13/2018 SUBJECTIVE: The patient is comfortable. No shortness of breath. No chest pain. PHYSICAL EXAMINATION: VITAL SIGNS: On physical exam, blood pressure 133/75, heart rates in the 70s. NECK: Negative JVD. LUNGS: Without rales. HEART: Reveal S1, S2. EXTREMITIES: Without edema. LABORATORY DATA: Hemoglobin is 11.9. Chemistries, BUN and creatinine unremarkable. The glucose is 166. Troponin peaked at 6.9. IMPRESSION 1. Status post subacute thrombosis of a diagonal branch of the stent. 2. Diabetes mellitus. 3. History of previous percutaneous transluminal coronary angioplasty of the left anterior descending. 4. Hypercholesterolemia. 5. Plavix resistance. Given these findings, we will change the patient to Effient which is easier than Brilinta for once a day administration. The patient is chest pain free and hemodynamically stable. From a cardiac perspective, the patient can be discharged today. Followup and instructions are given to the patient in detail. Geovani Peacock MD
--- NOTE | 2018-08-13 15:00 | CP.PCM.PN ---
<Clarisa Villafana - Last Filed: 08/13/18 16:16> Subjective - Date & Time of Evaluation Date of Evaluation: 08/13/18 Time of Evaluation: 07:35 - Subjective Subjective: Internal medicine progress note for Dr. Garrett Patient seen and examined at bedside this morning. Patient is sitting in recliner resting comfortably. She states that she is feeling well and is no longer having chest pain. She additionally denies SAB, chest pressure, arm pain, neck pain, abdominal pain, and extremity pain. She endorses mild tenderness at the site of catheter insertion in her Right groin. Dressing over area is CDI with no strikethrough. Objective - Vital Signs/Intake and Output Vital Signs (last 24 hours): Temp Pulse Resp BP Pulse Ox 98.4 F 74 41 H 133/75 99 08/13/18 08:02 08/13/18 09:44 08/13/18 09:44 08/13/18 09:23 08/13/18 09:10 Intake and Output: 08/13/18 08/13/18 06:59 18:59 Intake Total 375 460 Output Total 1600 1100 Balance -1225 -640 - Labs Labs: 08/13/18 06:18 08/13/18 06:18 PT 11.5 SECONDS (9.4-12.5) 08/11/18 22:15 INR 1.01 08/11/18 22:15 - Constitutional Appears: Well, Non-toxic, No Acute Distress - Head Exam Head Exam: ATRAUMATIC, NORMOCEPHALIC - Eye Exam Eye Exam: EOMI - Respiratory Exam Respiratory Exam: NORMAL BREATHING PATTERN - Cardiovascular Exam Cardiovascular Exam: REGULAR RHYTHM - GI/Abdominal Exam GI & Abdominal Exam: Soft. absent: Distended, Guarding, Rigid, Tenderness - Extremities Exam Extremities Exam: absent: Calf Tenderness, Pedal Edema - Neurological Exam Neurological Exam: Alert, Awake, Oriented x3 - Psychiatric Exam Psychiatric exam: Normal Affect, Normal Mood - Skin Skin Exam: Dry, Intact, Normal Color, Warm Assessment and Plan - Assessment and Plan (Free Text) Assessment: 57 year old female with past medical history significant for CAD s/p stenting x 11, HLD, DM2, HTN, Breast CA s/p hormonal therapy who presented for chest discomfort. Code heart was initiated and patient went to laboratory courier for emergent intervention. Diagonal stent found to be thrombosed and was reopened. Patient is transferred to ICU s/p intervention. She recovered well overnight with no acute events and will be placed on effient prior to discharge per Dr. Garza Plan: STEMI - CODE HEART called upon admission to ED for ST elevation in lateral leads - Patient loaded with ASA, Heparin and taken to laboratory courier with cloud administrator Dr. Lundy - Patient was found to have stent thrombosis of diagonal 1 requiring PTCA - Dr. Garza Consulted - Patient to likely need further intervention in future per Dr. Lundy - PRU value noted to be 267 indicating low plavix function - Per Dr. garza patient will be started on effient prior to d/c - will f/u with Dr. Garza in clinic later this week - Continue to monitor vital signs Hx of HTN - BP trended and appreciated - Continue home medications Hx of DM2 - Holding oral hypoglycemics from home - ISS-low - ACCHS - Heart healthy diet, carb consistent Hx HLD - Lipitor 40mg QHS GI/DVT ppx - IV protonix - SCDs Patient seen, case and plan discussed with Dr. Garrett <Vanessa Garrett - Last Filed: 08/15/18 18:49> Objective - Vital Signs/Intake and Output Vital Signs (last 24 hours): Temp Pulse Resp BP Pulse Ox 98.4 F 74 41 H 133/75 99 08/13/18 08:02 08/13/18 09:44 08/13/18 09:44 08/13/18 09:23 08/13/18 09:10 - Labs Labs: 08/13/18 06:18 08/13/18 06:18 PT 11.5 SECONDS (9.4-12.5) 08/11/18 22:15 INR 1.01 08/11/18 22:15 Attending/Attestation - Attestation I have personally seen and examined this patient.: Yes I have fully participated in the care of the patient.: Yes I have reviewed all pertinent clinical information, including history, physical exam and plan: Yes Notes (Text): 08/15/18 18:45 attending note; Patient seen and examined with resident. Patient is a 58 year old female with past medical history significant for CAD s/p stenting, HLD, DM2, HTN, Breast CA s/p hormonal therapy who presented for chest discomfort. Found to have acute ST elevation CT. Code heart was initiated and patient went to laboratory courier for emergent intervention. Diagonal stent found to be thrombosed and was reopened. Patient is transferred to ICU s/p intervention. Patient is currently chest pain-free. Denies any palpitations. Patient was evaluated by cloud administrator today. Cleared for discharge with instruction. We will discharge patient with brillanta. Patient will follow-up with Dr. Garza in one week. follow Up with PMD Dr. Lynn.
--- NOTE | 2018-08-14 12:22 | CP.PCM.DIS ---
<Clarisa Villafana - Last Filed: 08/15/18 17:04> Provider - Provider Date of Admission: 08/11/18 22:40 Attending physician: Vanessa Garrett MD Primary care physician: Dany Lynn MD Time Spent in preparation of Discharge (in minutes): 30 Hospital Course - Lab Results Lab Results: Most Recent Lab Values WBC 11.6 10^3/ul (4.5-11.0) H 08/13/18 06:18 RBC 4.57 10^6/uL (3.5-6.1) 08/13/18 06:18 Hgb 11.9 g/dL (12.0-16.0) L 08/13/18 06:18 Hct 36.7 % (36.0-48.0) 08/13/18 06:18 MCV 80.3 fl (80.0-105.0) 08/13/18 06:18 MCH 26.0 pg (25.0-35.0) 08/13/18 06:18 MCHC 32.4 g/dl (31.0-37.0) 08/13/18 06:18 RDW 13.8 % (11.5-14.5) 08/13/18 06:18 Plt Count 307 10^3/uL (120.0-450.0) 08/13/18 06:18 MPV 9.2 fl (7.0-11.0) 08/13/18 06:18 Gran % 62.2 % (50.0-68.0) 08/13/18 06:18 Lymph % (Auto) 25.2 % (22.0-35.0) 08/13/18 06:18 Holt % (Auto) 10.4 % (1.0-6.0) H 08/13/18 06:18 Eos % (Auto) 1.9 % (1.5-5.0) 08/13/18 06:18 Baso % (Auto) 0.3 % (0.0-3.0) 08/13/18 06:18 Gran # 7.21 (1.4-6.5) H 08/13/18 06:18 Lymph # (Auto) 2.9 (1.2-3.4) 08/13/18 06:18 Holt # (Auto) 1.2 (0.1-0.6) H 08/13/18 06:18 Eos # (Auto) 0.2 (0.0-0.7) 08/13/18 06:18 Baso # (Auto) 0.04 K/mm3 (0.0-2.0) 08/13/18 06:18 PT 11.5 SECONDS (9.4-12.5) 08/11/18 22:15 INR 1.01 08/11/18 22:15 Sodium 139 mmol/L (132-148) 08/13/18 06:18 Potassium 4.2 mmol/L (3.6-5.0) 08/13/18 06:18 Chloride 106 mmol/L (98-107) 08/13/18 06:18 Carbon Dioxide 25 mmol/L (21-33) 08/13/18 06:18 Anion Gap 12 (10-20) 08/13/18 06:18 BUN 7 mg/dL (7-21) 08/13/18 06:18 Creatinine 0.5 mg/dl (0.7-1.2) L 08/13/18 06:18 Est GFR ( Amer) > 60 08/13/18 06:18 Est GFR (Non-Af Amer) > 60 08/13/18 06:18 POC Glucose (mg/dL) 173 mg/dL (65-110) H 08/13/18 07:20 Random Glucose 166 mg/dL (70-110) H 08/13/18 06:18 Calcium 9.3 mg/dL (8.4-10.5) 08/13/18 06:18 Phosphorus 4.0 mg/dL (2.5-4.5) 08/13/18 06:18 Magnesium 2.1 mg/dL (1.7-2.2) 08/13/18 06:18 Total Bilirubin 0.5 mg/dL (0.2-1.3) 08/13/18 06:18 AST 44 U/L (14-36) H D 08/13/18 06:18 ALT 20 U/L (7-56) 08/13/18 06:18 Alkaline Phosphatase 92 U/L (38-126) 08/13/18 06:18 Lactate Dehydrogenase 403 U/L (333-699) 08/11/18 22:15 Total Creatine Kinase 78 U/L (35-230) 08/11/18 22:15 Troponin I 6.94 ng/mL H* D 08/12/18 08:00 Total Protein 7.6 g/dL (5.8-8.3) 08/13/18 06:18 Albumin 4.1 g/dL (3.0-4.8) 08/13/18 06:18 Globulin 3.5 gm/dL 08/13/18 06:18 Albumin/Globulin Ratio 1.2 (1.1-1.8) 08/13/18 06:18 - Hospital Course Hospital Course: 58 year old female with past medical history of CAD s/p stenting x11, HLD, DM2, HTN, breast cancer s/p hormonal therapy presented to [facility] on 08/12/2018 with complaints of chest discomfort. 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 Patient had recent stress test 2 weeks prior to admission. Most recent heart cath with stent placement was in July 2017. Patient was evaluated in ED and found to have ST segment elevations in lateral leads with reciprocal changes in leads II, III, and avF. Code HEART was called and patient was taken to experimental machining lab manager with Dr. Gomez where he performed PTCA to thrombosed previous stent in Diagonal 1. No stents were placed and EF was 60%. Patient was transferred to ICU for post cath monitoring. ST elevation in I (0.5 mm), aVL (1 mm) seen on EKG at 6:00 on 08/12 unchanged from EKG at 11:00 PM on 08/11. Patient was continued on toprol, aspirin, and lipitor. Chest x-ray showed no active disease. There was mild leukocytosis, likely stress-induced, which downtrended since admission. On morning of discharge, patient was in no acute distress and was alert and orientedx3. She denied chest pain, shortness of breath, nausea, and vomiting. Patient is to follow up with primary care physician, Dr. Lynn, and supervisor paint, Dr. Peacock within 3 to 5 days of discharge. Patient was discharged on Effient prior to DC per cardio request. - Date & Time of H&P Date of H&P: 08/13/18 Time of H&P: 08:30 Discharge Exam - Head Exam Head Exam: ATRAUMATIC, NORMOCEPHALIC - ENT Exam ENT Exam: Mucous Membranes Moist - Respiratory Exam Respiratory Exam: NORMAL BREATHING PATTERN. absent: Rales, Rhonchi, Wheezes - Cardiovascular Exam Cardiovascular Exam: REGULAR RHYTHM. absent: Bradycardia, Tachycardia - GI/Abdominal Exam GI & Abdominal Exam: Soft. absent: Distended, Guarding, Tenderness - Extremities Exam Extremities exam: pedal pulses present - Neurological Exam Neurological exam: Alert, Oriented x3 - Psychiatric Exam Psychiatric exam: Normal Affect, Normal Mood - Skin Skin Exam: Dry, Intact, Normal Color, Warm Discharge Plan - Discharge Medications Prescriptions: Prasugrel [Effient] 10 mg PO DAILY #30 tab - Follow Up Plan Condition: GUARDED Disposition: HOME/ ROUTINE Instructions: Coronary Heart Disease, Quitting Smoking for Older Adults, Smoking: Not Just Harmful to Your Lungs and Heart, Cardiac Catheterization (DC), Coronary Heart Disease (DC) Additional Instructions: 1). Go to the emergency dept for any chest pain and shortness of breath. 2). Monitor right groin for any bleeding - if there is apply pressure and call your primary doctor. If bleeding persists and unable to control go to the nearest emergency dept [facility]. 3). Clean right groin with soap and water - may cover with bandaid or open to air. 4). Monitor right groin for any signs and symptoms of infection such as : redness , warm and tender to touch , discharge from the incision site. 5). Take prescribed medications as per doctors order. 6). Follow up with Dr Lynn and Dr Peacock in a week. 7). Please STOP SMOKING! Referrals: Dany Lynn MD [Primary Care Provider] - Follow up with primary Clinical Quality Measures - CQM - Stroke Antithrombotic Prescribed: Yes Anticoagulation Prescribed for Atrial Flutter, Atrial Fibrillation and History of:: Not Applicable Statin prescribed: Yes - CQM - VTE Did patient receive overlap therapy during hosptialization?: Yes Is patient being discharged on overlap therapy?: No Medical Reason for discharge Overlap Therapy: No - CQM - Heart Failure Ejection Fraction: 40 % or Greater Beta-Ramón Prescribed: Metoprolol Succinate Angiotensin II Receptor Ramón Prescribed: Yes <Vanessa Garrett - Last Filed: 08/15/18 18:51> Provider - Provider Date of Admission: 08/11/18 22:40 Attending physician: Vanessa Garrett MD Primary care physician: Dany Lynn MD Hospital Course - Lab Results Lab Results: Micro Results 08/12/18 00:40 Nose MRSA Culture (Admit) - Final MRSA NOT DETECTED Most Recent Lab Values WBC 11.6 10^3/ul (4.5-11.0) H 08/13/18 06:18 RBC 4.57 10^6/uL (3.5-6.1) 08/13/18 06:18 Hgb 11.9 g/dL (12.0-16.0) L 08/13/18 06:18 Hct 36.7 % (36.0-48.0) 08/13/18 06:18 MCV 80.3 fl (80.0-105.0) 08/13/18 06:18 MCH 26.0 pg (25.0-35.0) 08/13/18 06:18 MCHC 32.4 g/dl (31.0-37.0) 08/13/18 06:18 RDW 13.8 % (11.5-14.5) 08/13/18 06:18 Plt Count 307 10^3/uL (120.0-450.0) 08/13/18 06:18 MPV 9.2 fl (7.0-11.0) 08/13/18 06:18 Gran % 62.2 % (50.0-68.0) 08/13/18 06:18 Lymph % (Auto) 25.2 % (22.0-35.0) 08/13/18 06:18 Holt % (Auto) 10.4 % (1.0-6.0) H 08/13/18 06:18 Eos % (Auto) 1.9 % (1.5-5.0) 08/13/18 06:18 Baso % (Auto) 0.3 % (0.0-3.0) 08/13/18 06:18 Gran # 7.21 (1.4-6.5) H 08/13/18 06:18 Lymph # (Auto) 2.9 (1.2-3.4) 08/13/18 06:18 Holt # (Auto) 1.2 (0.1-0.6) H 08/13/18 06:18 Eos # (Auto) 0.2 (0.0-0.7) 08/13/18 06:18 Baso # (Auto) 0.04 K/mm3 (0.0-2.0) 08/13/18 06:18 PT 11.5 SECONDS (9.4-12.5) 08/11/18 22:15 INR 1.01 08/11/18 22:15 Sodium 139 mmol/L (132-148) 08/13/18 06:18 Potassium 4.2 mmol/L (3.6-5.0) 08/13/18 06:18 Chloride 106 mmol/L (98-107) 08/13/18 06:18 Carbon Dioxide 25 mmol/L (21-33) 08/13/18 06:18 Anion Gap 12 (10-20) 08/13/18 06:18 BUN 7 mg/dL (7-21) 08/13/18 06:18 Creatinine 0.5 mg/dl (0.7-1.2) L 08/13/18 06:18 Est GFR ( Amer) > 60 08/13/18 06:18 Est GFR (Non-Af Amer) > 60 08/13/18 06:18 POC Glucose (mg/dL) 173 mg/dL (65-110) H 08/13/18 07:20 Random Glucose 166 mg/dL (70-110) H 08/13/18 06:18 Calcium 9.3 mg/dL (8.4-10.5) 08/13/18 06:18 Phosphorus 4.0 mg/dL (2.5-4.5) 08/13/18 06:18 Magnesium 2.1 mg/dL (1.7-2.2) 08/13/18 06:18 Total Bilirubin 0.5 mg/dL (0.2-1.3) 08/13/18 06:18 AST 44 U/L (14-36) H D 08/13/18 06:18 ALT 20 U/L (7-56) 08/13/18 06:18 Alkaline Phosphatase 92 U/L (38-126) 08/13/18 06:18 Lactate Dehydrogenase 403 U/L (333-699) 08/11/18 22:15 Total Creatine Kinase 78 U/L (35-230) 08/11/18 22:15 Troponin I 6.94 ng/mL H* D 08/12/18 08:00 Total Protein 7.6 g/dL (5.8-8.3) 08/13/18 06:18 Albumin 4.1 g/dL (3.0-4.8) 08/13/18 06:18 Globulin 3.5 gm/dL 08/13/18 06:18 Albumin/Globulin Ratio 1.2 (1.1-1.8) 08/13/18 06:18 Attending/Attestation - Attestation I have personally seen and examined this patient.: Yes I have fully participated in the care of the patient.: Yes I have reviewed all pertinent clinical information, including history, physical exam and plan: Yes Notes (Text): 08/15/18 18:49 attending note; Patient seen and examined with resident. Patient is a 58 year old female with past medical history significant for CAD s/p stenting, HLD, DM2, HTN, Breast CA s/p hormonal therapy who presented for chest discomfort. Found to have acute ST elevation MD. Code heart was initiated and patient went to experimental machining lab manager for emergent intervention. Diagonal stent found to be thrombosed and was reopened. Patient is transferred to ICU s/p intervention. Patient is currently chest pain-free. Denies any palpitations. Patient was evaluated by supervisor paint today. Cleared for discharge with inst ruction. continue aspirin and pravachol. We will discharge patient with effient. Patient will follow-up with Dr. Peacock in one week. follow Up with PMD Dr. Lynn.
== END 2018-08-13 12:01 | disposition home or self-care (01) | DRG 251 ==
LOC: ED 22:08 → CATH 22:39 → ICU 22:40 → INTOOBSV 08-12 00:22 → ICU 08-12 00:22 → UNDOADMOB 08-12 00:22 → UNDODISOB 08-13 12:01
PROVIDERS: ADMIT Internal Medicine; ATTEND Internal Medicine
PROC: 02703ZZ Dilation of Coronary Artery, One Artery, Percutaneous Approach (ICD-10-PCS; principal; 2018-08-11)
PROC: 4A023N7 Measurement of Cardiac Sampling and Pressure, Left Heart, Percutaneous Approach (ICD-10-PCS; 2018-08-11)
PROC: B2151ZZ Fluoroscopy of Left Heart using Low Osmolar Contrast (ICD-10-PCS; 2018-08-11)
PROC: B2111ZZ Fluoroscopy of Multiple Coronary Arteries using Low Osmolar Contrast (ICD-10-PCS; 2018-08-11)
DX: I21.3 ST elevation (STEMI) myocardial infarction of unspecified site (principal); I25.10 Atherosclerotic heart disease of native coronary artery without angina pectoris; E11.9 Type 2 diabetes mellitus without complications; I10 Essential (primary) hypertension; E78.5 Hyperlipidemia, unspecified; K59.00 Constipation, unspecified; Z85.3 Personal history of malignant neoplasm of breast; Z95.5 Presence of coronary angioplasty implant and graft